=== PATIENT | female | born 1950 | race Asian ===

== ENCOUNTER 2017-03-02 05:52 | Day surgery (SDC) | payer MEDICARE, OTHER ==
[~2017-03-02 05:52] MED LIST: ACETAMINOPHEN/CODEINE 300-30 MG TABLET PO PRN; ASPI81 PO; CALC-895 PO; LISI-662 PO; SIMV-261 PO; TETRACAINE HCL/PF 0.5% 4 ML OPHTHALMIC SOLUTION OS ONE
[2017-03-02] MEDS ORDERED: RINGERS SOLUTION,LACTATED 500 ML IV ONE ×2 (06:00→06:05)
[2017-03-02] MEDS ORDERED: MOXIFLOXACIN HCL 0.5% 3 ML OPHTHALMIC SOLUTION ONE (06:05)
[2017-03-02] MEDS ORDERED: TETRACAINE HCL/PF 0.5% 4 ML OPHTHALMIC SOLUTION ONE (06:05)
[2017-03-02] MEDS ORDERED: DICLOFENAC SODIUM 0.1% 2.5 ML OPHTHALMIC SOLUTION ONE (06:05)
[2017-03-02] MEDS ORDERED: CYCLOPENTOLATE HCL 2% 2 ML OPHTHALMIC SOLUTION ONE (06:05)
[2017-03-02] MEDS ORDERED: PHENYLEPHRINE HCL 2.5% 2 ML OPHTHALMIC SOLUTION ONE (06:06)
[2017-03-02] MEDS: PHENYLEPHRINE HCL 2.5% 2 ML OPHTHALMIC SOLUTION OS SCH ×3 (06:32→06:43)
[2017-03-02] MEDS: MOXIFLOXACIN HCL 0.5% 3 ML OPHTHALMIC SOLUTION OS SCH ×3 (06:33→06:55)
[2017-03-02] MEDS: DICLOFENAC SODIUM 0.1% 2.5 ML OPHTHALMIC SOLUTION OS SCH ×3 (06:33→06:55)
[2017-03-02] MEDS: CYCLOPENTOLATE HCL 2% 2 ML OPHTHALMIC SOLUTION OS SCH ×3 (06:33→06:43)
[2017-03-02] MEDS ORDERED: AcetaZOLAMIDE 250 MG TABLET PO ONE (07:30)
[2017-03-02] MEDS ORDERED: FentaNYL CITRATE-PF 100 MCG/2 ML VIAL IVP ONE (12:00)
[2017-03-02] MEDS ORDERED: MIDAZOLAM HCL 2 MG/2 ML VIAL IVP ONE (12:00)
[2017-03-02] MEDS ORDERED: HYALURONATE SOD/CHONDROITIN SOD 0.5 ML VIAL IO ONE (16:37)
[2017-03-02] MEDS ORDERED: TETRACAINE HCL/PF 0.5% 4 ML OPHTHALMIC SOLUTION OS ONE (16:37)
[2017-03-02] MEDS ORDERED: BRIMONIDINE TARTRATE 0.15% 5 ML OPHTHALMIC SOLUTION OS ONE (16:37)
[2017-03-02] MEDS ORDERED: HYALURONATE SODIUM 12 MG/ML 0.8 ML SYRINGE IO ONE (16:37)
[2017-03-02] MEDS ORDERED: LIDOCAINE HCL/PF 1% 2 ML VIAL IM ONE (16:37)
[2017-03-02] MEDS ORDERED: BALANCED SALT 15 ML OPHTHALMIC IRRIG.SOLN OS ONE (16:37)
[2017-03-02] MEDS ORDERED: TETRACAINE HCL VISCOUS 0.5% 5 ML OPHTHALMIC SOLUTION OS ONE (16:37)
[2017-03-02] MEDS ORDERED: POVIDONE-IODINE 10% 15 ML SOLUTION UD TP ONE (16:37)
[2017-03-02] MEDS ORDERED: EPINEPHrine 1:1,000 [1 MG/ML] AMP IM ONE (16:37)
== END 2017-03-02 08:25 | disposition home or self-care (01) ==
LOC: SURGERY 05:52
PROVIDERS: ATTEND Ophthalmology
DX: H25.12 Age-related nuclear cataract, left eye (principal); H40.9 Unspecified glaucoma; I10 Essential (primary) hypertension; F17.200 Nicotine dependence, unspecified, uncomplicated; Z88.2 Allergy status to sulfonamides; Z88.8 Allergy status to other drugs, medicaments and biological substances; Z98.890 Other specified postprocedural states; Z79.82 Long term (current) use of aspirin; Z79.899 Other long term (current) drug therapy; Z98.51 Tubal ligation status
CPT/HCPCS: 93005; J0171; J2250; J3010; J3490; J7120